=== PATIENT | male | born 1950 | race Caucasian/White ===

== ENCOUNTER 2017-04-29 07:10 | Day surgery (SDC) | payer BC ==
[~2017-04-29] VITALS: Ht 183 cm; Wt 113.6 kg
[2017-04-29] VITALS (13 sets, daily range): BP systolic 102–158; BP diastolic 40–87; PULSE 56–62; TEMP 97.7
[~2017-04-29 07:10] MED LIST: ALLOPURINOL300 MG PO; AMBIEN 10MG10 MG PO; ASPIRIN E.C. 8181 MG PO; BENADRYL25 M2 PO; COZAAR100 MG PO; DYRENIUM 50MG C50 MG PO; LIPITOR20 MG PO; MULTIPLE VITAMI1 TAB PO; NITROQUICK0.4 MG SL; OMEGA 31000 MG PO; PLAVIX 75MG TAB75 MG PO; TOPROL XL100 MG PO; TRIAMTERENE AND1 TA1 PO; ZESTRIL 10MG10 MG PO; ZETIA 10MG TAB10 MG PO; ZETIA10 MG PO; ZYLOPRIM 300MG300 MG PO
[2017-04-29 07:40] LABS: HEMATOCRIT 42.6 % (42.0-52.0); HEMOGLOBIN 14.4 g/dl (13.5-18.0); MEAN CELL VOLUME 90 fl (80.0-100.0); MEAN CORPUSCULAR HEMOGLOBIN 31 pg (27.0-31.0); MEAN CORPUSCULAR HGB CONC 34 g/dl (33.0-37.0); MEAN PLATELET VOLUME 10.3 fl (7.4-10.4); PLATELET COUNT 164 K/mm3 (130-400); RED BLOOD COUNT 4.72 M/mm3 (4.20-5.60); REDCELL DISTRIBUTION WIDTH-CV 13.5 % (11.5-14.5); WHITE BLOOD COUNT 9.2 K/mm3 (4.8-10.8)
[2017-04-29] MEDS ORDERED: OMEGA-31 SGL PO (07:41)
[2017-04-29 07:44] LABS: INR 1.1 (0.8-3.0); PROTHROMBIN TIME 11.8 SECONDS (9.7-12.8)
[2017-04-29 07:51] LABS: CALCIUM 9.1 mg/dL (8.4-10.2); CREATININE, serum 0.89 mg/dL (0.66-1.25); POTASSIUM 4.2 mmol/L (3.4-5.0)
== END 2017-04-29 15:34 | disposition home or self-care (01) ==
LOC: COL.CAR 07:10
PROVIDERS: Internal Medicine Cardiovascular Disease
DX: I25.10 Atherosclerotic heart disease of native coronary artery without angina pectoris (principal); I08.0 Rheumatic disorders of both mitral and aortic valves; I10 Essential (primary) hypertension; Z95.1 Presence of aortocoronary bypass graft; Z87.891 Personal history of nicotine dependence; Z83.3 Family history of diabetes mellitus; Z82.49 Family history of ischemic heart disease and other diseases of the circulatory system
CPT/HCPCS: C1760; C1894; J2250; J3010

== ENCOUNTER → 2018-01-05 | Outpatient (CLI) | payer MEDICARE, OTHER ==
[~2018-01-05] MED LIST changes: +OMEGA-31 SGL PO
== END ==
LOC: COL.RAD 07:53
DX: Z13.6 Encounter for screening for cardiovascular disorders (principal); I77.819 Aortic ectasia, unspecified site